=== PATIENT | male | born 1970 | race American Indian/Alaskan Native ===

== ENCOUNTER 2019-05-25 16:08 | Emergency (ER) | payer SELFPAY ==
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
[2019-05-25] MEDS ORDERED: TETANUS,DIPH,PERTUSS(ACELL) VACCINE 0.5 ML SYRINGE IM ONE (21:24)
[2019-05-25] MEDS ORDERED: AMOXICILLIN/K CLAV 875/125MG TAB PO ONE (21:24)
[2019-05-25 21:53] VITALS: BP 153/91
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
== END 2019-05-25 23:22 | disposition home or self-care (01) ==
LOC: ED 16:08
DX: S41.132A Puncture wound without foreign body of left upper arm, initial encounter (principal); Z79.899 Other long term (current) drug therapy; Y04.1XXA Assault by human bite, initial encounter; Y93.89 Activity, other specified; Y92.89 Other specified places as the place of occurrence of the external cause; Y99.8 Other external cause status
CPT/HCPCS: 90471; 90715